=== PATIENT | female | born 1995 | race African-American/Black ===

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

== ENCOUNTER 2017-07-25 23:36 | Emergency (ER) | payer MEDICAID ==
[~2017-07-25] VITALS: Ht 167.6 cm; Wt 112.9 kg
[~2017-07-25 23:36] MED LIST: AZITHROMYCIN500 MG ORAL; FLUCONAZOLE100 MG ORAL; NAPROXEN500 M2 ORAL; VIBRAMYCIN100 MG ORAL; ZYRTEC10 MG ORAL
[2017-07-26] MEDS ORDERED: Lidocaine 1% MPF 10mg/ml 5ml INJ ONE (00:15)
[2017-07-26] MEDS ORDERED: Azithromycin 250mg tab ORAL ONE (00:15)
[2017-07-26 00:27] VITALS: BP 119/76
[2017-07-26 00:28] VITALS: BP 119/76
--- NOTE | 2017-07-26 02:45 | Emergency Room Report ---
History of Present Illness General Chief Complaint: Vaginal Source: Patient Present Illness HPI 22-year-old female presenting with wanting antibiotics. Patient states that she had some vaginal discharge got tested by her doctor, she tested positive for gonorrhea. She denies any abdominal pain no fever no chills no nausea vomiting. States that she missed her appointment to get her antibiotic with her doctor so came here to the emergency room instead. No other complaints Allergies: Coded Allergies: No Known Allergies (Unverified , 03/27/16) Patient History Past Medical History: see triage record Past Surgical History: none Pertinent Family History: none Last Menstrual Period: july 21 Reviewed Nursing Documentation: PMH: Agreed; PSxH: Agreed Nursing Documentation-PMH Past Medical History: No Stated History Review of Systems All Other Systems: negative except mentioned in HPI Physical Exam Vital Signs Date Time Temp Pulse Resp B/P (MAP) Pulse Ox O2 Delivery O2 Flow Rate FiO2 07/25/17 23:56 98.5 76 18 119/76 99 Room Air 98.4 Sp02 EP Interpretation: reviewed, normal General Appearance: normal inspection, well appearing, no apparent distress, alert, GCS 15, non-toxic Head: normocephalic, atraumatic Eyes: bilateral eye normal inspection, bilateral eye PERRL, bilateral eye EOMI ENT: normal ENT inspection, normal pharynx, normal voice, moist mucus membranes Neck: normal inspection, full range of motion, supple Respiratory: normal inspection, lungs clear, normal breath sounds, no respiratory distress, no retraction, no wheezing, speaking full sentences, chest symmetrical Cardiovascular #1: normal inspection, regular rate, rhythm, no edema, normal capillary refill Cardiovascular #2: 2+ radial (R), 2+ radial (L) Gastrointestinal: normal inspection, non tender, soft, non-distended, no guarding Musculoskeletal: normal inspection, back normal, normal range of motion, non- tender Neurologic: normal inspection, alert, oriented x3, responsive, motor strength/ tone normal, sensory intact, normal gait, speech normal Psychiatric: normal inspection, judgement/insight normal, memory normal Skin: normal inspection, normal color, no rash, warm/dry, well hydrated, normal turgor Medical Decision Making Diagnostic Impression: Primary Impression: Concern about STD in female without diagnosis ER Course 22-year-old female with diagnosis of STD wanting treatment DDX: STD Plan: Ceftriaxone and azithromycin ER course: Patient has remained stable during ED stay. Given meds Told to refrain from all sexual activity for 2 weeks and told to have all her partners tested and treated Disposition: Patient is to be discharged to home. Strict return precautions discussed with patient such as fever, chills, worsening/severe pain, chest pain, SOB, nausea, vomiting, which may indicate severe illness. Patient verbalizes understanding and agrees with plan. Please note that this Emergency Department Report was dictated using [employer] inspector technology software, occasionally this can lead to erroneous entry secondary to interpretation by the dictation equipment Last Vital Signs Date Time Temp Pulse Resp B/P (MAP) Pulse Ox O2 Delivery O2 Flow Rate FiO2 07/26/17 00:28 98.5 18 119/76 99 Room Air 98.4 07/25/17 23:56 76 Disposition: HOME, SELF-CARE Condition: Improved Referrals: [facility]ERR[facility] (PCP) Patient Instructions: Sexually Transmitted Disease, [id number] Kelly Laguna M.D. July 26, 2017 02:45
== END 2017-07-26 00:28 | disposition home or self-care (01) ==
LOC: EMR 07-26 00:14
DX: N89.8 Other specified noninflammatory disorders of vagina (principal)
CPT/HCPCS: 96372; 99283; J0696; Q0144

== ENCOUNTER 2018-08-21 21:19 | Emergency (ER) | payer MEDICAID ==
[~2018-08-21] VITALS: Ht 167.6 cm; Wt 106.6 kg
--- NOTE | 2018-08-21 21:36 | Emergency Room Report ---
History of Present Illness General Chief Complaint: Female Urogenital Problems Source: Patient Present Illness HPI This is a 23-year-old female with no past medical history. She presents with chief complaint of vaginal itching and irritation. Onset for last 2 weeks. Does have a whitish discharge. Painful with urination. History of chlamydia in the past but no nausea no vomiting. No fever chills. No rash. Allergies: Coded Allergies: No Known Allergies (Unverified , 03/27/16) Patient History Past Medical History: none, see triage record, old chart reviewed Past Surgical History: none Pertinent Family History: none Social History: Denies: smoking Last Menstrual Period: 08/11/18 Now: No Immunizations: other Reviewed Nursing Documentation: PMH: Agreed; PSxH: Agreed Nursing Documentation-PMH Past Medical History: No Stated History Review of Systems Eye: Denies: eye pain, blurred vision ENT: Denies: ear pain, nose congestion, throat swelling Respiratory: Denies: cough, shortness of breath Cardiovascular: Denies: chest pain, palpitations Gastrointestinal: Denies: abdominal pain, diarrhea, nausea, vomiting Genitourinary: Reports: discharge, dysuria, pain Musculoskeletal: Denies: back pain, joint pain Skin: Denies: rash Neurological: Denies: headache, numbness Endocrine: Denies: increased thirst, increased urine Hematologic/Lymphatic: Denies: easy bruising All Other Systems: negative except mentioned in HPI Physical Exam Vital Signs Date Time Temp Pulse Resp B/P (MAP) Pulse Ox O2 Delivery O2 Flow Rate FiO2 08/21/18 21:21 98.6 83 17 119/71 (87) 97 Room Air Vitals normal Sp02 EP Interpretation: reviewed, normal General Appearance: well appearing, no apparent distress, alert Head: normocephalic, atraumatic Eyes: bilateral eye PERRL, bilateral eye EOMI ENT: hearing grossly normal, normal pharynx Neck: full range of motion, supple, no meningismus Respiratory: chest non-tender, lungs clear, normal breath sounds Cardiovascular #1: regular rate, rhythm, no murmur Gastrointestinal: normal bowel sounds, non tender, no mass, no organomegaly, no bruit, non-distended Genitourinary: other - Pelvic exam done with female RN as platform beater. whitish dc at base of vagina and perineum. whitish dc in vault. no cmt. Musculoskeletal: back normal, gait/station normal, normal range of motion Psychiatric: mood/affect normal Skin: warm/dry Medical Decision Making Diagnostic Impression: Primary Impression: Bacterial vaginosis ER Course Patient with vaginal itching. Wet mount showed bacterial vaginosis. She just finished a course of antibiotics for group B strep. No evidence of UTI. Will discharge home. Last Vital Signs Date Time Temp Pulse Resp B/P (MAP) Pulse Ox O2 Delivery O2 Flow Rate FiO2 08/21/18 21:21 98.6 83 17 119/71 (87) 97 Room Air Status: improved Disposition: HOME, SELF-CARE Condition: Stable Scripts Metronidazole* (FLAGYL*) 500 Mg Tablet 500 MG ORAL BID, #14 TAB Prov: Aguila Key MD 08/21/18 Additional Instructions: Follow-up with your doctor in 7 days. Return if symptoms worsen. Aguila Key MD Aug 21, 2018 21:36
[2018-08-21 21:51] LABS: APPEARANCE,URINE CLEAR; BILIRUBIN, URINE NEGATIVE (NEGATIVE); COLOR,URINE PALE YELLOW; GLUCOSE, URINE (UA) NEGATIVE (NEGATIVE); KETONES,URINE NEGATIVE (NEGATIVE); LEUKOCYTE ESTERASE ,URINE NEGATIVE (NEGATIVE); NITRITE,URINE NEGATIVE (NEGATIVE); PH,URINE 6 (4.5-8.0); PROTEIN,URINE NEGATIVE (NEGATIVE); UROBILINOGEN,URINE NORMAL MG/DL (0.0-1.0)
[2018-08-21 22:00] VITALS: BP 119/71
--- NOTE | 2018-08-21 22:02 | NUR ---
ER Nurse Note: Pt came from home c/o vaginal discharge and burning when voiding for 2 weeks. Pt stated she "forcefully wiped and may have caused scratches". Pt has hx of STDs. All orders completed per ERMD orders. Will conitue to monitor.
[2018-08-21] MEDS ORDERED: METRONIDAZOLE500 MG ORAL (22:22)
[2018-08-21 22:40] VITALS: BP 119/71
--- NOTE | 2018-08-21 22:40 | NUR ---
ER Nurse Note: Pt seen, treated, medically cleared for discharge by ERMD. Discharge instuctions and prescriptions given with repeat verbalization by pt. Emphasized to follow up with primay care provider. All orders completed per ERMD orders. Pt a&ox4, VSS, no signs of distress. ID band removed. Pt ambulaitory with steady gait, left with all belongings, left with own transportation.
== END 2018-08-21 22:40 | disposition home or self-care (01) ==
LOC: EMR 21:37
DX: N76.0 Acute vaginitis (principal)
CPT/HCPCS: 81003; 81025; 87210; 99283